=== PATIENT | female | born 1995 | race Caucasian/White ===

== ENCOUNTER 2017-02-02 12:47 | Emergency (ER) | payer SELFPAY | END 2017-02-02 15:28 | disposition home or self-care (01) | LOC: D.ER 12:47 | DX: T50.905A Adverse effect of unspecified drugs, medicaments and biological substances, initial encounter (principal); Y92.89 Other specified places as the place of occurrence of the external cause; F17.200 Nicotine dependence, unspecified, uncomplicated ==

== ENCOUNTER 2019-01-01 17:50 | Emergency (ER) | payer SELFPAY ==
[~2019-01-01] VITALS: Ht 167.6 cm; Wt 98.6 kg
[2019-01-01 18:09] VITALS: Ht 167.6 cm; Wt 98.6 kg
[2019-01-01 18:47] LABS: BASOPHILS 0.2 % (0-2); EOSINOPHILS 1.3 % (0-7); HEMATOCRIT 37.5 % (36.0-48.0); IMMATURE GRANULOCYTES 0.2 % (0-5); LYMPHOCYTES 23.6 % (15-50); MCHC 34.7 g/dL (31.0-37.0); MCV 86.4 fL (80.0-100.0); MEAN PLATELET VOLUME 10.3 fL (7.4-10.4); MONOCYTES 9.4 % (2-11); NEUTROPHILS 65.3 % (40-80); PLATELET COUNT 177 10x3/uL (130-400); RBC 4.34 10x6/uL (4.00-5.40); RDW 13.4 % (11.5-14.5); WBC 12.7 10x3/uL (4.8-10.8)
[2019-01-01 19:00] LABS: ALBUMIN 3.6 g/dL (3.4-5.0); ALKALINE PHOSPHATASE 55 U/L (46-116); ALT (SGPT) 13 U/L (10-68); BILIRUBIN - TOTAL 0.49 mg/dL (0.2-1.3); CALC OSMOLALITY 276 mosm/kg (275-300); CALCIUM 8.7 mg/dL (8.5-10.1); CARBON DIOXIDE 25.1 mmol/L (21.0-32.0); CHLORIDE - SERUM 105 mmol/L (98-107); CREATININE - SERUM 0.7 mg/dL (0.6-1.3); GLUCOSE 85 mg/dL (74-106); POTASSIUM - SERUM 3.3 mmol/L (3.5-5.1); PROTEIN - SERUM 7.3 g/dL (6.4-8.2); SODIUM 141 mmol/L (136-145); UREA NITROGEN 5 mg/dL (7-18); eGFR NON AFRICAN AMERICAN > 90 mL/min (90-120)
[2019-01-01 19:05] LABS: AMYLASE - SERUM 39 U/L (25-115); LIPASE 102 U/L (73-393)
[2019-01-01 19:06] LABS: TROPONIN-I < 0.017 ng/mL (0.000-0.060)
[2019-01-01 19:13] LABS: HCG URINE NEGATIVE (NEGATIVE)
[2019-01-01 19:15] LABS: APPEARANCE HAZY (CLEAR); BILIRUBIN NEGATIVE (NEGATIVE); COLOR YELLOW (YELLOW); GLUCOSE NEGATIVE (NEGATIVE); KETONE NEGATIVE (NEGATIVE); NITRITE POSITIVE (NEGATIVE); PROTEIN TRACE mg/dL (NEGATIVE); UROBILINOGEN NORMAL (NORMAL)
[2019-01-01 19:16] LABS: AMORPHOUS SEDIMENT <1+ /lpf (NONE SEEN); BACTERIA MANY /hpf (NONE SEEN); RED CELLS - URINE 25-50 /hpf (0-5); WHITE CELLS - URINE 25-50 /hpf (0-5)
[2019-01-01] MEDS ORDERED: OMNICEF300 MG PO (21:00)
[2019-01-01] MEDS ORDERED: ZOFRAN ODT4 MG/UDTAB PO (21:00)
[2019-01-01] MEDS ORDERED: ULTRAM50 MG PO (21:00)
[2019-01-01 21:13] VITALS: BP 122/84
== END 2019-01-01 21:14 | disposition home or self-care (01) ==
LOC: D.ER 17:50
PROVIDERS: Family Medicine
DX: N11.1 Chronic obstructive pyelonephritis (principal)